=== PATIENT | female | born 2000 | race Caucasian/White ===

== ENCOUNTER 2023-03-11 15:24 | Outpatient (REF) | payer MEDICAID, SELFPAY ==
[2023-03-13 15:05] LABS: GC Result Negative (Negative)
[2023-03-13 15:45] LABS: Chlamydia Result Positive (Negative)
== END 2023-03-11 15:25 | disposition home or self-care (01) ==
LOC: LBN 15:24
PROVIDERS: Visit Provider Nurse Practitioner Family
DX: N39.0 Urinary tract infection, site not specified (principal)
CPT/HCPCS: 87491; 87591; 87086